=== PATIENT | male | born 2000 | race Two or more races ===

== ENCOUNTER 2021-01-30 | Outpatient (CLI) | payer OTHER | END 2021-01-30 07:34 | disposition home or self-care (01) | LOC: PPH VACUNA | DX: Z23 Encounter for immunization (principal) ==

== ENCOUNTER 2021-03-01 08:00 | Outpatient (CLI) | payer OTHER | END 2021-03-01 08:30 | disposition home or self-care (01) | LOC: PPH VACUNA 08:00 | DX: Z23 Encounter for immunization (principal) ==